=== PATIENT | female | born 1950 | race Hispanic/Latino ===

== ENCOUNTER 2020-02-09 15:55 | Emergency (ER) | payer MEDICARE ==
--- OUTSIDE RECORDS SUMMARY | 2020-02-09 15:57 | XMS REPORT ---
:1950 Author Organization [employer] Care Team Providers Name Role Phone Muir, Na Provider Role Unavailable Allergies No Known Allergies Problems Problem Type Condition Code Onset Dates Condition Status Problem Osteoarthritis of left knee, M17.12 Active unspecified osteoarthritis type Problem Hyperlipidemia E78.5 Active Problem Insomnia, unspecified type G47.00 Active Assessment Screening mammogram, encounter for Z12.31 Active Problem Allergic rhinitis J30.9 Active Medications No Known Medications Results No Known Results Summary Purpose eClinicalWorks Submission
--- OUTSIDE RECORDS SUMMARY | 2020-02-09 15:57 | XMS REPORT ---
:1950 Author Organization [employer] Care Team Providers Name Role Phone Muir, Na Provider Role Unavailable Allergies, Adverse Reactions, Alerts Substance Reaction Event Type N.K.D.A. Info Not Available Non Drug Allergy Problems Problem Type Condition Code Onset Dates Condition Status Assessment Non-healing skin lesion of nose L98.9 Active Assessment Osteoarthritis of left knee, M17.12 Active unspecified osteoarthritis type Assessment Insomnia, unspecified type G47.00 Active Problem Osteoarthritis of left knee, M17.12 Active unspecified osteoarthritis type Problem Hyperlipidemia E78.5 Active Problem Insomnia, unspecified type G47.00 Active Assessment Left anterior knee pain M25.562 Active Assessment Hyperlipidemia E78.5 Active Problem Allergic rhinitis J30.9 Active Medications Medication Code Code Instructions Start End Status Dosage System Date Date Simvastatin ND 62598328491 10 MG Orally Inactive 1 tablet Once a day in the evening Black Cohosh ND 49621141104 40 MG Orally Active not Hot Flash defined Relief Crestor ND 78376354833 10 MG Orally Inactive 1 tablet Once a day Valtrex ND 53572445653 500 MG Orally Active 1 tablet twice a day Results No Known Results Summary Purpose eClinicalWorks Submission
--- OUTSIDE RECORDS SUMMARY | 2020-02-09 15:58 | XMS REPORT ---
:1950 Author Organization [employer] Care Team Providers Name Role Phone Muir, Na Provider Role Unavailable Allergies No Known Allergies Problems Problem Type Condition Code Onset Dates Condition Status Problem Osteoarthritis of left knee, M17.12 Active unspecified osteoarthritis type Problem Hyperlipidemia E78.5 Active Problem Insomnia, unspecified type G47.00 Active Problem Allergic rhinitis J30.9 Active Medications No Known Medications Results No Known Results Summary Purpose [employer]ClinicalWorks Submission
--- OUTSIDE RECORDS SUMMARY | 2020-02-09 15:58 | XMS REPORT ---
:1950 Author Organization [employer] Care Team Providers Name Role Phone Muir, Na Provider Role Unavailable Allergies, Adverse Reactions, Alerts Substance Reaction Event Type N.K.D.A. Info Not Available Non Drug Allergy Problems Problem Type Condition Code Onset Dates Condition Status Assessment Insomnia, unspecified type G47.00 Active Assessment Prediabetes R73.03 Active Assessment Osteoarthritis of left knee, M17.12 Active unspecified osteoarthritis type Assessment Encounter for screening mammogram Z12.31 Active for breast cancer Problem Osteoarthritis of left knee, M17.12 Active unspecified osteoarthritis type Problem Hyperlipidemia E78.5 Active Problem Insomnia, unspecified type G47.00 Active Assessment Hyperlipidemia E78.5 Active Assessment Medicare annual wellness visit, Z00.00 Active subsequent Problem Allergic rhinitis J30.9 Active Medications Medication Code Code Instructions Start End Status Dosage System Date Date Valtrex [facility] [place] 2] 30629320184 500 MG Orally Active 1 tablet twice a day Black Cohosh [facility] [place] 2[place] 89966521826 40 MG Orally Active not Hot Flash defined Relief Mirtazapine [facility] [place]NOTE 2] 69105528913 15 MG Orally Active 1 tablet Once a day at bedtime Crestor [facility] [place]NOTE 2] 78776036531 10 MG Orally Inactive 1 tablet Once a day Simvastatin [facility] [place]NOTE 2] 73881187692 10 MG Orally Inactive 1 tablet Once a day in the evening Results No Known Results Summary Purpose eClinicalWorks Submission
--- OUTSIDE RECORDS SUMMARY | 2020-02-09 15:58 | XMS REPORT ---
:1950 Author Organization [employer] Care Team Providers Name Role Phone Muir, Na Provider Role Unavailable Allergies, Adverse Reactions, Alerts Substance Reaction Event Type N.K.D.A. Info Not Available Non Drug Allergy Problems Problem Type Condition Code Onset Dates Condition Status Assessment Insomnia, unspecified type G47.00 Active Assessment Blood tests for routine general Z00.00 Active physical examination Problem Osteoarthritis of left knee, M17.12 Active unspecified osteoarthritis type Problem Hyperlipidemia E78.5 Active Problem Insomnia, unspecified type G47.00 Active Assessment Hyperlipidemia E78.5 Active Assessment Osteoarthritis of left knee, M17.12 Active unspecified osteoarthritis type Problem Allergic rhinitis J30.9 Active Medications Medication Code Code Instructions Start End Status Dosage System Date Date Valtrex [facility] 56110550037 500 MG Orally Active 1 tablet twice a day Black Cohosh [facility] 44350528155 40 MG Orally Active not Hot Flash defined Relief Mirtazapine [facility] 84117224500 15 MG Orally Pushpa Active 1 tablet Once a day 2018 at bedtime Simvastatin [facility] 69717892413 10 MG Orally Inactive 1 tablet Once a day in the evening Crestor [facility] 79277402397 10 MG Orally Inactive 1 tablet Once a day Results No Known Results Summary Purpose [employer]ClinicalWorks Submission
--- NOTE | 2020-02-09 16:33 | ER ---
Nurse's Notes [facility] Name: Renetta Guerra Age: 69 yrs Sex: Female : 1950 Arrival Date: 02/09/2020 Time: 15:57 Bed 4 Private MD: Diagnosis: Zoster without complications Presentation: 02/08 16:17 Chief complaint: Patient states: RASH ON ABDOMEN. Coronavirus screen: Patient denies bp fever greater than 100.4F, cough, shortness of breath, or difficulty breathing. Proceed with normal triage process. Ebola Screen: No symptoms or risks identified at this time. Initial Sepsis Screen: Does the patient meet any 2 criteria? No. Patient's initial sepsis screen is negative. Does the patient have a suspected source of infection? No. Patient's initial sepsis screen is negative. Risk Assessment: Do you want to hurt yourself or someone else? Patient reports no desire to harm self or others. 16:17 Method Of Arrival: Ambulatory bp 16:17 Acuity: ARISTEO 4 bp Triage Assessment: 16:19 General: Appears in no apparent distress. comfortable, Behavior is calm, cooperative, bp appropriate for age. Pain: Complains of pain in anterior aspect of left lateral abdomen. EENT: No deficits noted. Neuro: No deficits noted. Cardiovascular: No deficits noted. Respiratory: No deficits noted. GI: No signs and/or symptoms were reported involving the gastrointestinal system. : No signs and/or symptoms were reported regarding the genitourinary system. Derm: Rash noted that is vesicular. Musculoskeletal: No deficits noted. Historical: - Allergies: 16:19 No Known Allergies; bp - Home Meds: 16:19 None [Active]; bp - PMHx: 16:19 None; bp - Immunization history:: Adult Immunizations up to date. - Social history:: Smoking status: Patient denies any tobacco usage or history of. Screenin:20 Abuse screen: Denies threats or abuse. Denies injuries from another. Nutritional bp screening: No deficits noted. Tuberculosis screening: No symptoms or risk factors identified. Fall Risk None identified. Assessment: 16:20 General: SEE TRIAGE NOTE. bp 16:43 Reassessment: PT D/C HOME AMBULATORY, DX WITH ZOSTER WITHOUT COMPLICATIONS. bp Vital Signs: 16:17 BP 126 / 66; Pulse 59; Resp 16; Temp 97.1; Pulse Ox 96% ; Weight 55.79 kg; Height 4 ft. bp 11 in. (149.86 cm); 16:17 Body Mass Index 24.84 (55.79 kg, 149.86 cm) bp ED Course: 15:57 Patient arrived in ED. as 16:07 Antonio Solis MD is Attending Physician. kdr 16:13 Yang Bernal, RN is Primary Nurse. bp 16:18 Triage completed. bp 16:19 Arm band placed on. bp 16:20 Patient has correct armband on for positive identification. Placed in gown. Bed in low bp position. Call light in reach. Side rails up X2. 16:43 No provider procedures requiring assistance completed. Patient did not have IV access bp during this emergency room visit. Administered Medications: 16:30 Drug: Ibuprofen 600 mg Route: PO; bp 16:45 Follow up: Response: No adverse reaction bp 16:30 Drug: predniSONE 40 mg Route: PO; bp 16:45 Follow up: Response: No adverse reaction bp 16:30 Drug: Pepcid 20 mg Route: PO; bp 16:45 Follow up: Response: No adverse reaction bp Outcome: 16:32 Discharge ordered by . kdr 16:43 Discharged to home ambulatory. bp 16:43 Condition: stable 16:43 Discharge instructions given to patient, Instructed on discharge instructions, follow up and referral plans. medication usage, Demonstrated understanding of instructions, follow-up care, medications, Prescriptions given X 3. 16:45 Patient left the ED. bp Signatures: Antonio Solis MD MD kdr Josephine Stafford Brian, RN RN bp
--- NOTE | 2020-02-09 16:34 | EDPHYS ---
Physician Documentation [facility] Name: Renetta Guerra Age: 69 yrs Sex: Female : 1950 Arrival Date: 02/09/2020 Time: 15:57 Bed 4 Private MD: ED Physician Antonio Solis HPI: 02/08 16:24 This 69 yrs old Female presents to ER via Ambulatory with complaints of kdr Abdominal Pain, Skin Sore(s). 16:24 The patient's rash thought to be caused by Shingles/Zoster. The rash is located on the kdr anterior aspect of left lateral abdomen and left lower quadrant. The rash can be described as erythematous, macular, patchy, pustular, raised, vesicular. Onset: The symptoms/episode began/occurred gradually, 5 day(s) ago. Associated signs and symptoms: Pertinent positives: itching, Pain. Severity of symptoms: At their worst the symptoms were moderate in the emergency department the symptoms are unchanged. Treatment given at home: Benadryl. The patient has not experienced similar symptoms in the past. The patient has not recently seen a physician. Historical: - Allergies: 16:19 No Known Allergies; bp - Home Meds: 16:19 None [Active]; bp - PMHx: 16:19 None; bp - Immunization history:: Adult Immunizations up to date. - Social history:: Smoking status: Patient denies any tobacco usage or history of. ROS: 16:24 Constitutional: Negative for fever, chills, and weight loss, Eyes: Negative for injury, kdr pain, redness, and discharge, ENT: Negative for injury, pain, and discharge, Neck: Negative for injury, pain, and swelling, Cardiovascular: Negative for chest pain, palpitations, and edema, Respiratory: Negative for shortness of breath, cough, wheezing, and pleuritic chest pain, Abdomen/GI: Negative for abdominal pain, nausea, vomiting, diarrhea, and constipation, Back: Negative for injury and pain, : Negative for injury, bleeding, discharge, and swelling, MS/Extremity: Negative for injury and deformity, Neuro: Negative for headache, weakness, numbness, tingling, and seizure activity. Psych: Negative for depression, anxiety, suicide ideation, homicidal ideation, and hallucinations, Allergy/Immunology: Negative for hives, rash, and allergies, Endocrine: Negative for neck swelling, polydipsia, polyuria, polyphagia, and marked weight changes, Hematologic/Lymphatic: Negative for swollen nodes, abnormal bleeding, and unusual bruising. 16:24 Skin: Positive for rash. Exam: 16:24 Constitutional: This is a well developed, well nourished patient who is awake, alert, kdr and in no acute distress. 16:24 Skin: induration, that is mild is noted, zoster, on the anterior aspect of left lateral abdomen and left lower quadrant. Vital Signs: 16:17 BP 126 / 66; Pulse 59; Resp 16; Temp 97.1; Pulse Ox 96% ; Weight 55.79 kg; Height 4 ft. bp 11 in. (149.86 cm); 16:17 Body Mass Index 24.84 (55.79 kg, 149.86 cm) bp MDM: 16:24 Data reviewed: vital signs, nurses notes. Counseling: I had a detailed discussion with kdr the patient and/or guardian regarding: the historical points, exam findings, and any diagnostic results supporting the discharge/admit diagnosis, the need for outpatient follow up. 16:32 Patient medically screened. kdr Administered Medications: 16:30 Drug: Ibuprofen 600 mg Route: PO; bp 16:45 Follow up: Response: No adverse reaction bp 16:30 Drug: predniSONE 40 mg Route: PO; bp 16:45 Follow up: Response: No adverse reaction bp 16:30 Drug: Pepcid 20 mg Route: PO; bp 16:45 Follow up: Response: No adverse reaction bp Disposition: 02/09/20 16:32 Discharged to Home. Impression: Zoster without complications. - Condition is Stable. - Discharge Instructions: Shingles, [id number]. - Prescriptions for Ibuprofen 600 mg Oral Tablet - take 1 tablet by ORAL route every 6 hours As needed take with food; 30 tablet. Tylenol- Codeine #3 300-30 mg Oral Tablet - take 2 tablets by ORAL route every 6 hours As needed Take mostly in the evening before sleeping to help promote sleep; 16 tablet. Medrol (Manny) 4 mg Oral Tablets, Dose Pack - take 1 tablet by ORAL route as directed - follow package instructions; 1 packet. - Medication Reconciliation Form, Thank You Letter, Prescription Opioid Use form. - Follow up: Private Physician; When: 2 - 3 days; Reason: If symptoms return, Further diagnostic work-up, Recheck today's complaints, Continuance of care, Re-evaluation by your physician. - Problem is new. - Symptoms are unchanged. Signatures: Antonio Solis MD MD kdr Yang Bernal, RN RN bp Corrections: (The following items were deleted from the chart) 16:45 16:32 02/09/2020 16:32 Discharged to Home. Impression: Zoster without complications. bp Condition is Stable. Forms are Medication Reconciliation Form, Thank You Letter, Antibiotic Education, Prescription Opioid Use. Follow up: Private Physician; When: 2 - 3 days; Reason: If symptoms return, Further diagnostic work-up, Recheck today's complaints, Continuance of care, Re-evaluation by your physician. Problem is new. Symptoms are unchanged. kdr
[2020-02-09] MEDS ORDERED: FAMOTIDINE 20 MG TAB ONE (16:36)
[2020-02-09] MEDS ORDERED: IBUPROFEN 200 MG TAB PO ONE (16:36)
[2020-02-09] MEDS ORDERED: predniSONE 20 MG TAB ONE (16:36)
[2020-02-09 17:01] VITALS: BP 126/66; TEMP 97.1; O2SAT 96
== END 2020-02-09 16:45 | disposition home or self-care (01) ==
LOC: ER 15:55
DX: B02.9 Zoster without complications (principal)
CPT/HCPCS: 99283; J7512

== ENCOUNTER 2024-05-03 06:43 | Day surgery (SDC) | payer OTHER ==
[2024-04-18 16:29] LABS: Absolute Eosinophils 0.2 K/uL (0-0.5); Absolute Lymphocytes (CBC) 2.6 K/uL (0.7-4.9); Absolute Monocytes 0.5 K/uL (0.1-1.3); Absolute Neutrophil 2.7 K/uL (1.8-8.0); Basophils % 0.6 % (0-1.3); Eosinophils % 3.6 % (0-4.4); Hemoglobin 11.8 g/dL (12.0-15.0); Lymphocytes % 42.9 % (15.3-44.8); MCH 29.7 pg (27.0-35.0); MCHC 32.7 g/dL (32.0-36.0); MCV 90.8 fL (80-100); MPV 8.5 fL (7.6-11.3); Monocytes % 8.6 % (3.3-12.3); Neutrophils % 44.3 % (41.7-73.7); Platelets 285 thou/uL (152-406); RBC Red Blood Cell Count 3.97 M/uL (3.86-4.86)
[2024-04-18 16:46] LABS: Anion Gap 4.7 mEq/L (5.0-15.0); Potassium 3.7 mEq/L (3.5-5.1)
--- NOTE | 2024-04-19 16:51 | EKG ---
Test Date: 2024-04-18 Test Time: 15:35:12 Drafting Clerk: PREO MEASUREMENT RESULTS: Intervals: Rate: 80 MS: 164 QRSD: 76 QT: 368 QTc: 424 [place]: P: 60 MS: 164 QRS: 50 T: 67 INTERPRETIVE STATEMENTS: Sinus rhythm with marked sinus arrhythmia Otherwise normal ECG Compared to ECG 12/14/2016 10:35:38 No significant changes Electronically Signed On 04-19-24 16:48:27 CDT by Chris Brown
[2024-05-03] MEDS ORDERED: Ringers Lactate 1,000 ML IV ONE (06:54)
[2024-05-03] MEDS ORDERED: LIDOCAINE 2% MPF 5 ML VIAL ONE (07:19)
[2024-05-03] MEDS ORDERED: SUCCINYLCHOLINE 20 MG/ML (10 ML) IV ONE (07:20)
[2024-05-03] MEDS ORDERED: propofoL 200 MG/20 ML VIAL IV ONE (07:20)
[2024-05-03 09:58] VITALS: BP 141/72; TEMP 97.8; O2SAT 100
== END 2024-05-03 09:15 | disposition home or self-care (01) ==
LOC: OR 06:43
PROVIDERS: ATTEND Surgery
PROC: 0DBL8ZX Excision of Transverse Colon, Via Natural or Artificial Opening Endoscopic, Diagnostic (ICD-10-PCS; 2024-05-03)
PROC: 0DBN8ZX Excision of Sigmoid Colon, Via Natural or Artificial Opening Endoscopic, Diagnostic (ICD-10-PCS; 2024-05-03)
PROC: 0DBF8ZX Excision of Right Large Intestine, Via Natural or Artificial Opening Endoscopic, Diagnostic (ICD-10-PCS; 2024-05-03)
PROC: 0DBH8ZX Excision of Cecum, Via Natural or Artificial Opening Endoscopic, Diagnostic (ICD-10-PCS; principal; 2024-05-03 08:00)
DX: Z12.11 Encounter for screening for malignant neoplasm of colon (principal); K57.30 Diverticulosis of large intestine without perforation or abscess without bleeding; K64.8 Other hemorrhoids; D12.0 Benign neoplasm of cecum; D12.5 Benign neoplasm of sigmoid colon; D12.3 Benign neoplasm of transverse colon
CPT/HCPCS: 93005; 85025; 80048; 36415; 88305; 45385; J2704; J2001; J7120